=== PATIENT | male | born 1975 | race American Indian/Alaskan Native ===

== ENCOUNTER 2018-07-20 08:16 | Day surgery (SDC) | payer MEDICARE ==
[~2018-07-20 08:16] MED LIST: ANCEF/STERILE WATER 2 GM/20 ML 2 GM/20 ML SYRINGE IV NR; MARCAINE 0.5% INFILTRATI ONE; NACL 0.9% 1000 ML 1,000 ML IV SCH
[2018-07-20] MEDS ORDERED: DIPRIVAN 10 MG/ML IV ONE ×2 (08:42→12:28)
[2018-07-20] MEDS ORDERED: DILAUDID ONE ×2 (08:42→11:40)
[2018-07-20] MEDS ORDERED: XYLOCAINE MPF 2% ONE (08:42)
[2018-07-20 09:37] LABS: Eosinophils # (Auto) 0.1 K/mm3 (0.0-0.4); Eosinophils % (Auto) 2.6 % (0.0-4.3); Hematocrit 34.7 % (35.5-45.6); Hemoglobin 11.4 gm/dl (11.8-15.2); Lymphocytes # (Auto) 1.2 K/mm3 (1.2-5.4); Lymphocytes % (Auto) 23.9 % (13.4-35.0); Mean Corpuscular HGB Conc 33 % (32-34); Mean Corpuscular Hemoglobin 29 pg (28-32); Mean Corpuscular Volume 89 fl (84-94); Monocytes # (Auto) 0.4 K/mm3 (0.0-0.8); Platelet Count 164 K/mm3 (140-440); Red Blood Count 3.89 M/mm3 (3.65-5.03); Red Cell Distribution Width 14.6 % (13.2-15.2)
[2018-07-20 09:53] LABS: Calcium 8.8 mg/dL (8.4-10.2)
--- NOTE | 2018-07-20 10:20 | Anesthesia Day of Surgery ---
Anesthesia Day of Surgery - Day of Surgery Patient Examined: Yes Patient H&P Reviewed: Yes Patient is NPO: Yes
--- NOTE | 2018-07-20 10:20 | Anesthesia Consultation ---
Anesthesia Consult and Med Hx Date of service: 07/20/18 - Airway Anesthetic Teeth Evaluation: Good ROM Head & Neck: Adequate Mental/Hyoid Distance: Adequate Mallampati Class: Class II Intubation Access Assessment: Good - Pulmonary Exam CTA: Yes - Cardiac Exam Cardiac Exam: No Murmur - Pre-Operative Health Status ASA Pre-Surgery Classification: ASA3 Proposed Anesthetic Plan: General - Pulmonary Hx Smoking: No Hx Sleep Apnea: No (EVELIN PRE SCREEN LOW RISK) - Cardiovascular System Hx Hypertension: Yes (X 10 YRS) - Endocrine Hx End Stage Renal Disease: Yes (ON DIALYSIS X 1 YR) - Hematic Hx Anemia: Yes - Other Systems Hx Cancer: No
[2018-07-20] MEDS ORDERED: VERSED IV NR (10:21)
[2018-07-20] MEDS ORDERED: PEPCID IV NR (11:00)
[2018-07-20] MEDS ORDERED: MARCAINE 0.5% 30 ML INFILTRATI ONE (11:42)
[2018-07-20] MEDS ORDERED: NACL 0.45% 0 ML IV ONE (11:42)
[2018-07-20] MEDS ORDERED: HEPARIN ONE (11:43)
[2018-07-20] MEDS ORDERED: NACL 0.9% 500 ML 500 ML ONE (11:44)
[2018-07-20] MEDS ORDERED: HEPARIN 10,000 UNITS/10 ML ONE (11:44)
[2018-07-20] MEDS ORDERED: NACL 0.9% IR ONE (12:54)
[2018-07-20] MEDS ORDERED: HEPARIN 10,000 UNITS/10 ML IV ONE (12:54)
[2018-07-20] MEDS ORDERED: ZOFRAN ONE (14:08)
[2018-07-20] MEDS ORDERED: MARCAINE 0.5% INFILTRATI ONE (14:15)
--- NOTE | 2018-07-20 16:15 | Short Stay Summary ---
Short Stay Documentation Date of service: 07/20/18 Narrative H&P: See H&P - History H&P: obtained from office - Allergies and Medications Current Medications: Allergies No Known Allergies Allergy (Verified 05/19/18 16:02) Home Medications Medication Instructions Recorded Confirmed Last Taken Type hydrALAZINE [Apresoline TAB] 100 mg PO DAILY 05/19/18 07/08/18 07/20/18 07:20 History Metoprolol [Lopressor] 100 mg PO DAILY 07/08/18 07/08/18 07/20/18 07:20 History Active Medications Cefazolin Sodium (Ancef/Sterile Water 2 Gm/20 Ml) 2 gm in 20 mls @ 80 mls/hr IV PREOP NR; Protocol Stop: 07/20/18 21:00 Sodium Chloride (Nacl 0.9% 1000 Ml) 1,000 mls @ 42 mls/hr IV DIRECT PRIYA Last Admin: 07/20/18 10:05 Dose: 42 mls/hr - Brief post op/procedure progress note Date of procedure: 07/20/18 Pre-op diagnosis: Complications of Dialysis Access Post-op diagnosis: same Procedure: 1. Creation of Left Darlyn Arteriovenous Fistula 2. Ligation of Left Brachiocephalic Arteriovenous Fistula Anesthesia: GETA Surgeon: CURTIS JEFFERS Estimated blood loss: minimal Pathology: none Condition: stable - Disposition Condition at discharge: Good Disposition: DC-01 TO HOME OR SELFCARE Short Stay Discharge Plan Activity: other (no heavy lifting with left arm) Wound: open to air, keep clean and dry, other (okay to wash the wound with soap and water but do not soak in water) Follow up with: CURTIS JEFFERS MD [Staff Physician] - 14 Days Prescriptions: HYDROcodone/APAP 7.5-325 [[place] 7.5/325] 1 each PO Q6HR PRN #40 tablet PRN Reason: Pain
--- NOTE | 2018-07-20 16:17 | Operative Report ---
Operative Report Operative Report: Date of Procedure: 07/20/2018 Pre-operative Diagnosis: Complications of Dialysis Access Post-operative Diagnosis: Same Procedure(s): 1. Creation of Left Darlyn Arteriovenous Fistula 2. Ligation of Left Brachiocephalic Arteriovenous Fistula Surgeon: Darrick Gilman M.D. Title Vehicle Service Attendant: [] Anesthesia: [] EBL: [] Counts: [] Complications: [] Condition: [] Findings: [] Specimen: [] Indication: [] Description of Procedure: []
[2018-07-20 16:26] VITALS: BP 130/83
== END 2018-07-20 16:45 | disposition home or self-care (01) ==
LOC: OR 08:16
PROVIDERS: ATTEND Surgery Vascular Surgery
DX: T82.898A Other specified complication of vascular prosthetic devices, implants and grafts, initial encounter (principal); I12.0 Hypertensive chronic kidney disease with stage 5 chronic kidney disease or end stage renal disease; N18.6 End stage renal disease; F41.9 Anxiety disorder, unspecified; Z99.2 Dependence on renal dialysis; Z86.2 Personal history of diseases of the blood and blood-forming organs and certain disorders involving the immune mechanism; Z79.899 Other long term (current) drug therapy; Y83.8 Other surgical procedures as the cause of abnormal reaction of the patient, or of later complication, without mention of misadventure at the time of the procedure; Y92.89 Other specified places as the place of occurrence of the external cause
CPT/HCPCS: 36415; 36830; 37607; 80048; 82962; 85025; J0690; J1170; J1644; J2405; J2704; J7030; J7040; J2250